=== PATIENT | male | born 1990 | race American Indian/Alaskan Native ===

== ENCOUNTER 2017-10-07 07:53 | Emergency (ER) | payer MEDICAID ==
[2017-10-07 10:09] LABS: URINE BILIRUBIN NEGATIVE (NEGATIVE); URINE BLOOD NEGATIVE (NEGATIVE); URINE CLARITY Clear (Clear); URINE COLOR Yellow (YELLOW); URINE GLUCOSE (UA) NORMAL (Normal); URINE LEUKOCYTE ESTERASE NEG Leu/uL (Negative); URINE PROTEIN NEGATIVE (NEGATIVE)
--- NOTE | 2017-10-07 11:00 | US ---
HISTORY: Left testicular pain TECHNIQUE: Realtime sonography through the scrotum with color and doppler flow. COMPARISON: None Available. FINDINGS: RIGHT TESTICLE: Measures 3.8 x 1.8 x 2.6 cm. Normal echotexture and flow. There is a nonspecific coarse calcification in the lateral upper pole. RIGHT EPIDIDYMIS: Epididymal head measures 0.7 x 0.8 x 0.7 cm. Grossly unremarkable appearance with normal flow. LEFT TESTICLE: Measures 3.8 x 1.8 x 2.1 cm. Normal echotexture and flow. LEFT EPIDIDYMIS: Epididymal head measures 1.0 x 1.1 x 0.7 cm. Grossly unremarkable appearance with normal flow. HYDROCELE: There are bilateral small hydroceles. VARICOCELE: There is a small varicocele. OTHER FINDINGS: None. IMPRESSION: 1. No evidence for testicular mass, torsion or epididymo-orchitis. 2. Left varicocele.
--- NOTE | 2017-10-07 11:15 | C.PDOC ---
History Of Present Illness 27-year-old male, presents to the emergency department with complaints of pain to left testicle x1 month, worse yesterday after he lifted something heavy. He denies any nausea/vomiting, fever, chills, dysuria, hematuria or any other associated symptoms. No other complaints at this time. Chief Complaint (Nursing): Male Genitourinary History Per: Patient History/Exam Limitations: no limitations Current Symptoms Are (Timing): Still Present Severity: Moderate Past Medical History Reviewed: Historical Data, Nursing Documentation, Vital Signs Vital Signs: Last Vital Signs Temp 98 F 10/07/17 12:17 Pulse 78 10/07/17 12:17 Resp 18 10/07/17 12:17 BP 136/72 10/07/17 12:17 Pulse Ox 97 10/07/17 15:04 Family History: States: No Known Family Hx - Social History Hx Alcohol Use: No Hx Substance Use: No - Immunization History Hx Tetanus Toxoid Vaccination: Yes Hx Influenza Vaccination: No Hx Pneumococcal Vaccination: No Review Of Systems Constitutional: Negative for: Fever, Chills Cardiovascular: Negative for: Chest Pain, Palpitations Respiratory: Negative for: Shortness of Breath Gastrointestinal: Negative for: Vomiting, Abdominal Pain Genitourinary: Positive for: Scrotal Pain. Negative for: Dysuria, Frequency, Hematuria, Penile Discharge, Rash, Penile Pain Musculoskeletal: Negative for: Back Pain Skin: Negative for: Rash Neurological: Negative for: Weakness, Numbness, Headache, Dizziness Physical Exam - Physical Exam Appears: Non-toxic, No Acute Distress Skin: Normal Color, Warm, Dry, No Rash Head: Atraumatic, Normacephalic Eye(s): bilateral: Normal Inspection, PERRL Nose: Normal Oral Mucosa: Moist Lips: Normal Appearing Neck: Normal ROM Chest: Symmetrical Cardiovascular: Rhythm Regular, No Murmur Respiratory: Normal Breath Sounds, No Accessory Muscle Use Gastrointestinal/Abdominal: Soft, No Tenderness, No Guarding, No Rebound Male Genital: No Testicular Tenderness, No Testicular Swelling, No Inguinal Tenderness, No Inguinal Swelling, No Scrotal Swelling Extremity: Normal ROM, No Deformity, No Swelling Neurological/Psych: Oriented x3, Normal Speech ED Course And Treatment O2 Sat by Pulse Oximetry: 97 (RA) Pulse Ox Interpretation: Normal - CT Scan/US US Testicular Other Rad Studies (CT/US): Read By Radiologist, Radiology Report Reviewed CT/US Interpretation: Accession No. : [id number]. Patient Name / ID : [facility] / [id number]. Exam Date : 10/07/2017 10:07:38 ( Approved ). Study Comment : Sex / Age : M / 27Y. Creator : Lida Frank MD. Dictator : Lida Frank MD. Addictions Counselor : Industrial Illuminating Engineer : Lida Frank MD. Approver2 : Report Date : 10/07/2017 10:59:25. My Comment : . HISTORY: Left testicular pain. TECHNIQUE: Realtime sonography through the scrotum with color and doppler flow. COMPARISON: None Available. FINDINGS: RIGHT TESTICLE: Measures 3.8 x 1.8 x 2.6 cm. Normal echotexture and flow. There is a nonspecific coarse calcification in the lateral upper pole. RIGHT EPIDIDYMIS: Epididymal head measures 0.7 x 0.8 x 0.7 cm. Grossly unremarkable appearance with normal flow. LEFT TESTICLE: Measures 3.8 x 1.8 x 2.1 cm. Normal echotexture and flow. LEFT EPIDIDYMIS: Epididymal head measures 1.0 x 1.1 x 0.7 cm. Grossly unremarkable appearance with normal flow. HYDROCELE: There are bilateral small hydroceles. VARICOCELE: There is a small varicocele. OTHER FINDINGS: None. IMPRESSION: 1. No evidence for testicular mass, torsion or epididymo-orchitis. 2. Left varicocele. Disposition - Disposition Referrals: Jori Fry MD [Staff Provider] - Disposition: HOME/ ROUTINE Disposition Time: 11:14 Condition: STABLE Additional Instructions: Follow up with Urologist within 1-2 days. Return to ED if feel worse. Prescriptions: Ibuprofen [Motrin Tab] 600 mg PO Q8 #30 tab Instructions: Varicocele Forms: [employer] ([place]), Work Excuse - Clinical Impression Clinical Impression: Testicular pain - Scribe Statement The provider has reviewed the documentation as recorded by the Scribe (Sarah Wolf) All medical record entries made by the Scribe were at my direction and personally dictated by me. I have reviewed the chart and agree that the record accurately reflects my personal performance of the history, physical exam, medical decision making, and the department course for this patient. I have also personally directed, reviewed, and agree with the discharge instructions and disposition.
[2017-10-07 12:18] VITALS: BP 136/72; PULSE 78; RESP 18; TEMP 98
[2017-10-07 15:02] VITALS: O2SAT 97
== END 2017-10-07 12:18 | disposition home or self-care (01) ==
LOC: C.ER 07:53
DX: N50.812 Left testicular pain (principal)